=== PATIENT | male | born 1980 | race Caucasian/White ===

== ENCOUNTER 2022-09-11 18:27 | Emergency (ER) | payer OTHER ==
[2022-09-11] MEDS ORDERED: Ketorolac Tromethamine 30 MG/ML VIAL ONE (19:33)
== END 2022-09-11 21:18 | disposition home or self-care (01) ==
LOC: ERS 18:27
DX: S82.401A Unspecified fracture of shaft of right fibula, initial encounter for closed fracture (principal); X50.1XXA Overexertion from prolonged static or awkward postures, initial encounter
CPT/HCPCS: 96372; J1885